=== PATIENT | male | born 1995 | race Caucasian/White ===

== ENCOUNTER 2025-02-22 10:47 | Outpatient (AMB) | payer BC, SELFPAY ==
--- NOTE | 2025-02-22 10:59 | A.OFFPC_ITS ---
Vital Signs 02/22/25 11:05 Height 5 ft 10.87 in Weight 183 lb BMI 25.6 BP 134/88 Blood Pressure Location Lt brachial Position Sitting Respiration 16 Pulse 97 Pulse Source Pulse Oximeter Temp 98.3 F Temp Source Oral Pulse Oximetry (%) 98 Oxygen Delivery Method Room Air Intake Visit Reasons: Ankle Check-Up & Anxiety Manager Hematology Required: No Accompanied by: Self / Same As Patient Allergies No Known Allergies Allergy (Verified 02/22/25 11:00) Tobacco use date assessed: 02/22/25 Dental Screening Dental Screen Date: 02/22/25 Did you have a dental visit in the last 12 months?: Yes Did you have a dental problem in the last 6 months where you did not have access to dental care?: No Was dental information given to patient?: Patient has dentist HPI HPI Comments History of Present Illness Details Consent Patient was informed and verbally consented to the use of an ambient scribe for clinic note documentation during this visit. History of Present Illness The patient is a 29-year-old male presenting with management of ADHD, anxiety, and depression, as well as follow-up for a recent fall injury. Attention Deficit Hyperactivity Disorder (ADHD): The patient was diagnosed with ADHD in [address] Simeon at [facility]. He has not been on medication since February 2022, previously taking Adderall XR 100 mg. 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 Anxiety: The patient describes himself as quite anxious and has a history of taking sertraline and Wellbutrin for anxiety and depression. He reports that sertraline was effective but led to a stable mood without highs and lows. Bipolar II Disorder: The patient was suggested to have hypomanic bipolar disorder by his psychiatrist, which aligns with Bipolar II Disorder. He reports that sertraline stabilized his mood but resulted in a consistently depressed state. Depression: The patient has a history of depression and has been treated with sertraline and Wellbutrin. He reports that sertraline was effective in managing his symptoms. Left knee ACL tear: The patient underwent ACL replacement surgery on his left knee in October 2019 after tearing it in September 2019. He has since returned to activities such as ice skating. Fall with subsequent injury: The patient fell down a flight of stairs five weeks ago, resulting in an injury that required wearing a boot. He reports no fractures or separations and is expected to wear the boot for another three weeks. Surgical History: - ACL replacement surgery on left knee i n October 2019 Medications: - Adderall XR 100 mg (previously taken f or ADHD) - Sertraline (previously taken for anxie ty and depression) - Wellbutrin (previously taken for anxie ty and depression) Social History: - Employment: Works as a plastics scientist, find s it challenging without ADHD medication. - Substance use: Reports smoking marijua na and occasional use of psychedelics. - Exercise: Engages in activities such a s ice skating. Review of Systems - Musculoskeletal: Reports tightness in finger upon waking, requires stretching. - Neurological: Denies syncope but repor ts near-fainting episodes. - Respiratory: Denies snoring or waking up gasping for air. - Gastrointestinal: Denies constipation. 10-point ROS reviewed and negative excep t as noted in HPI Past Medical History - Attention Deficit Hyperactivity Disord er (ADHD) diagnosed in 2021 - Anxiety and Depression, previously bandar ated with sertraline and Wellbutrin - Bipolar II Disorder, suggested by psyc hiatrist - Left knee ACL tear, surgically repaire d in October 2019 Health Maintenance - Vaccinations: Up to date with Tdap, fl u shot, and COVID booster scheduled. Physical Exam General: Well-appearing, in no acute distress. Vital signs: Within normal limits. HEENT: Normocephalic, atraumatic. PERRLA, EOMI. Conjunctiva clear, sclera anicteric. Oropharynx clear, mucous membranes moist. TMs intact bilaterally. Neck: Supple, no lymphadenopathy, no thyromegaly, no JVD or carotid bruits. Cardiovascular: RRR, normal S1/S2, no murmurs, rubs, or gallops. Peripheral pulses 2+ and symmetric. No edema. Respiratory: Lungs clear to auscultation bilaterally, no wheezes, rales, or rhonchi. Normal effort. Abdomen: Soft, non-tender, non-distended. Normoactive bowel sounds. No hepatosplenomegaly, no masses. MSK: Full range of motion, no joint swelling or deformity. Normal gait. Patient is currently in a boot for left leg due to a fall down a flight of stairs five weeks ago. Left knee ACL replacement in October 2019. Skin: Warm, dry, intact. No rashes, lesions, or pallor. Recent minor head injury from a falling object, bleeding stopped. Neuro: Alert and oriented x3. Cranial nerves II-XII intact. Strength 5/5 throughout. Sensation intact. Reflexes 2+ symmetric. Normal coordination and gait. Reports tightness in finger upon waking, requiring stretching. Psych: Appropriate mood and affect. Normal judgment and insight. History of ADHD, anxiety, and bipolar depression type II. Previously on sertraline and Adderall XR 100 mg. Reports increased anxiety and self-medicating with cannabis. Plan 1. Attention Deficit Hyperactivity Disor tanner (Adhd) - Referral to [facility] for evaluation and potential restart of ADHD medication. 2. Anxiety - Referral to [facility] for evaluation and management of anxiety. 3. Bipolar Ii Disorder - Referral to [facility] for evaluation and management of bipolar disorder. 4. Depression - Referral to [facility] for evaluation and management of depression. 5. Left Knee Acl Tear - Follow-up with accounting software specialist f or ongoing management and rehabilitation. 6. Fall With Subsequent Injury - Continue wearing the boot for three mo re weeks and follow up with accounting software specialist. Discussion Notes I discussed with the patient the importance of addressing his ADHD, anxiety, and depression through appropriate referrals to behavioral health specialists. We also talked about the need for follow-up with orthopedics for his recent fall injury. I emphasized the significance of adhering to the recommended treatment plans and the potential benefits of restarting ADHD medication. Additionally, I ordered a complete blood count to monitor his health status. Patient Instructions - Follow up with behavioral [facility] for ADHD, anxiety, and depression management. - Continue wearing the boot for three mo re weeks and follow up with orthopedics. - Schedule a blood draw for a complete b lood count before the next visit. Medical Decision Making The patient's primary concerns include ADHD, anxiety, and depression, which require comprehensive management through behavioral health referrals. The decision to refer to specialists is based on the need for specialized care and potential medication management. The recent fall injury necessitates orthopedic follow-up to ensure proper healing and rehabilitation. The complete blood count is ordered to monitor overall health and address any underlying issues. The goal is to provide a holistic approach to the patient's mental and physical health needs. Total time spent caring for the patient today was 30 minutes. This includes time spent before the visit reviewing the chart, time spent documenting, and time spent reviewing laboratory results, diagnostic imaging, medications, performing a medically necessary evaluation, counseling on diagnoses, care coordination, ordering appropriate tests, ordering appropriate medications. [facility] Medical History (Updated 02/22/25 @ 11:27 by Tyree Webster MD) Bipolar depression Anxiety and depression ADHD Family History (Updated 02/22/25 @ 11:01 by Lucio Pitts MA) Father No problems noted. Mother No problems noted. Social History Housing: Apartment Patient Tobacco Use Status: Current someday Tobacco user service: No Current occupational status: unemployed Cognitive needs: Yes Hearing needs: No Vision needs: No Questionnaire PHQ-9 Over the last 2 weeks, how often have you been bothered by any of the following problems? 1. Little interest or pleasure in doing things: more than half the days 2. Feeling down, depressed, or hopeless: several days 3. Trouble falling or staying asleep, or sleeping too much: several days 4. Feeling tired or having little energy: several days 5. Poor appetite or overeating: several days 6. Feeling bad about yourself - or that you are a failure or have let yourself or your family down: several days 7. Trouble concentrating on things, such as reading the newspaper or watching television: several days 8. Moving or speaking so slowly that other people could have noticed. Or the opposite - being so fidgety or restless that you have been moving around a lot more than usual: not at all 9. Thoughts that you would be better off or of hurting yourself in some way: not at all Total score: 8 Depression Screening Interpretation: Negative Depression Screening Done: Yes Source: Developed by Drs. Satish Cueva, Cindy Nicolas, Mau Lee and colleagues, with an educational omi from [employer]. Thrive Questionnaire Date Thrive assessed: 02/18/25 I am a: Patient What is your living situation today?: I have a steady place to live Within the past 12 months, did the food you bought not last and you didn't have the money to get more?: Never true Within the past 12 months, did you worry whether your food would run out before you got money to buy more?: Never true Do you have trouble paying for medicines?: No Do you have trouble getting transportation to medical appointments?: No Do you have trouble paying your heating and electricity bill?: No Do you have trouble taking care of your child, family member or friend?: No Do you have trouble with day-to-day activities such as bathing, preparing meals, shopping, managing finances, etc.?: No Are you currently unemployed and looking for a job?: Yes Are you interested in more education?: Yes Please select the resources that you would like help with: Job search/training Currently or been in a relationship where the following occur: No concerns reported THRIVE Score: 0 AUDIT C Alcohol Use Questionnaire (AUDIT-C) 1. How often do you have a drink containing alcohol?: 2-4 times a month 2. How many drinks containing alcohol do you have on a typical day when you are drinking?: 3 or 4 3. How often do you have six or more drinks on one occasion?: Less than monthly Total Score: 4 ANGELINE-7 AMB Questionnaire ANGELINE-7 Feeling nervous, anxious, or on edge: 3 = Nearly every day Not being able to stop or control worryin = Several days Worrying too much about different things: 0 = Not at all Trouble relaxin = Several days Being so restless that it is hard to sit still: 1 = Several days Becoming easily annoyed or irritable: 0 = Not at all Feeling afraid as if something awful might happen: 0 = Not at all Total ANGELINE-7 score (0-4 normal; 5-9 mild; 10-14 moderate; 15-21 severe): 6 Source: Developed by Drs. Satish Cueva, Cindy Nicolas, Mau Lee and colleagues, with an educational omi from [employer]. Physical exam (Primary Care) Vital Signs: Last Vital Signs Temp 98.3 F 02/22/25 11:05 Pulse 97 02/22/25 11:05 Resp 16 02/22/25 11:05 BP 134/88 02/22/25 11:05 Pulse Ox 98 02/22/25 11:05 Oxygen Delivery Method Room Air 02/22/25 11:05 BMI result Body Mass Index 25.6 Tobacco/Smoking Status: Tobacco use Status Tobacco use date assessed 02/22/25 02/22/25 11:04 Patient Tobacco Use Status Current someday Tobacco 02/22/25 11:09 PHQ-9: PHQ-9 Score PHQ-9: Total score 8 02/22/25 11:00 Depression Screening Interpretation: Negative Thrive Assessment: Date of Thrive Assessment Date Thrive assessed 02/18/25 02/22/25 11:00 Currently or been in a relationship where the following occur: No concerns reported Coding Level of Care Code New Pt Level 4 (71798) Diagnoses ADHD F90.9 Anxiety and depression F41.9; F32.A Bipolar depression F31.9 History of repair of anterior cruciate ligament of left knee Z98.890 Fall W19.XXXA Assessment & Plan Assessment & Plan (1) ADHD: Code(s): F90.9 - Attention-deficit hyperactivity disorder, unspecified type Category: Medical (2) Anxiety and depression: Code(s): F41.9 - Anxiety disorder, unspecified; F32.A - Depression, unspecified Category: Medical (3) Bipolar depression: Code(s): F31.9 - Bipolar disorder, unspecified Category: Medical (4) History of repair of anterior cruciate ligament of left knee: Code(s): Z98.890 - Other specified postprocedural states (5) Fall: Code(s): W19.XXXA - Unspecified fall, initial encounter Plan Orders: Orders Comprehensive Met. Panel Today Z13.9 - Encounter for screening, unspecified Hepatitis B Surface Antigen Today Z13.9 - Encounter for screening, unspecified HIV Ab/Ag Today Z13.9 - Encounter for screening, unspecified Vitamin D 1,25 dihydroxy Today Z13.9 - Encounter for screening, unspecified Complete Blood Count Auto Diff Today Z13.9 - Encounter for screening, unspecified Hemoglobin A1c Today Z13.9 - Encounter for screening, unspecified Hepatitis B Surface Antibody Today Z13.9 - Encounter for screening, unspecified Hepatitis C Antibody Today Z13.9 - Encounter for screening, unspecified Lipid Panel Today Z13.9 - Encounter for screening, unspecified TSH reflex Free T4 Today Z13.9 - Encounter for screening, unspecified UA CC w/rflx Micro + Cult Today Z13.9 - Encounter for screening, unspecified Vitamin B12 and Folate Today Z13.9 - Encounter for screening, unspecified Magnesium Today Z13.9 - Encounter for screening, unspecified Referrals Psychiatry Outpatient Consultation Service F31.9 - Bipolar disorder, unspecified, F32.A - Depression, unspecified, F41.9 - Anxiety disorder, unspecified, F90.9 - Attention-deficit hyperactivity disorder, unspecified type Nurse Navigator Referral F31.9 - Bipolar disorder, unspecified, F32.A - Depression, unspecified, F41.9 - Anxiety disorder, unspecified, F90.9 - Attention-deficit hyperactivity disorder, unspecified type Behavioral Health Referral F31.9 - Bipolar disorder, unspecified, F32.A - Depression, unspecified, F41.9 - Anxiety disorder, unspecified, F90.9 - Attention-deficit hyperactivity disorder, unspecified type
[2025-02-22 11:05] VITALS: BP 134/88; PULSE 97; RESP 16; TEMP 36.8; O2SAT 98; BMI 25.6
== END 2025-02-22 11:38 | disposition home or self-care (01) ==
PROVIDERS: PCP Student in an Organized Health Care Education/Training Program; Visit Provider Student in an Organized Health Care Education/Training Program
DX: F90.9 Attention-deficit hyperactivity disorder, unspecified type (principal); F41.9 Anxiety disorder, unspecified; F32.A Depression, unspecified; F31.9 Bipolar disorder, unspecified; Z98.890 Other specified postprocedural states; W19.XXXA Unspecified fall, initial encounter

== ENCOUNTER 2025-03-17 15:35 | Outpatient (AMB) | payer BC, SELFPAY ==
--- NOTE | 2025-03-17 15:41 | A.OFFPC_ITS ---
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 Trigger finger of left ring finger: The patient reports an 8-week history of pain, clicking, and locking in his left ring finger, which is worse in the mornings. He notes that the finger will get stuck in a flexed position, requiring intentional effort to extend it. He wonders if the issue is related to his recent use of crutches, which he is no longer using. Social History: - Functional Status: The patient recentl y used crutches and was unable to drive until today. - Current mobility is full weight-bearin g. Past Medical History - Recent crutch use for an unspecified c ondition. Health Maintenance - The patient has pending blood work to be completed. [facility] Medical History (Updated 03/17/25 @ 20:34 by Tyree Webster MD) Trigger finger, left ring finger Bipolar depression Anxiety and depression ADHD Family History Father No problems noted. Mother No problems noted. Social History (Updated 03/17/25 @ 15:43 by Josue Mcgowan CMA) Housing: Apartment Patient Tobacco Use Status: Current someday Tobacco user Substance Use Type: Marijuana service: No Current occupational status: unemployed Cognitive needs: Yes Hearing needs: No Vision needs: No Questionnaire Thrive Questionnaire Date Thrive assessed: 02/18/25 I am a: Patient What is your living situation today?: I have a steady place to live Within the past 12 months, did the food you bought not last and you didn't have the money to get more?: Never true Within the past 12 months, did you worry whether your food would run out before you got money to buy more?: Never true Do you have trouble paying for medicines?: No Do you have trouble getting transportation to medical appointments?: No Do you have trouble paying your heating and electricity bill?: No Do you have trouble taking care of your child, family member or friend?: No Do you have trouble with day-to-day activities such as bathing, preparing meals, shopping, managing finances, etc.?: No Are you currently unemployed and looking for a job?: Yes Are you interested in more education?: Yes Please select the resources that you would like help with: Job search/training Currently or been in a relationship where the following occur: No concerns reported THRIVE Score: 0 Review of Systems Narrative Review of Systems - Musculoskeletal: Reports pain, clicking, and locking of the left ring finger for the past 8 weeks, which is worse in the morning. 10-point ROS reviewed and negative except as noted in HPI Physical exam (Primary Care) Vital Signs: Last Vital Signs Temp 98.3 F 03/17/25 15:43 Pulse 91 03/17/25 15:43 Resp 17 03/17/25 15:43 BP 129/66 03/17/25 15:43 Pulse Ox 96 03/17/25 15:43 Oxygen Delivery Method Room Air 03/17/25 15:43 BMI result Body Mass Index 25.1 Tobacco/Smoking Status: Tobacco use Status Tobacco use date assessed 02/22/25 03/17/25 15:45 Patient Tobacco Use Status Current someday Tobacco 03/17/25 15:45 Thrive Assessment: Date of Thrive Assessment Date Thrive assessed 02/18/25 03/17/25 15:45 Currently or been in a relationship where the following occur: No concerns reported Narrative Physical Exam General: Well-appearing, in no acute distress. Vital signs: Within normal limits. HEENT: Normocephalic, atraumatic. PERRLA, EOMI. Conjunctiva clear, sclera anicteric. Oropharynx clear, mucous membranes moist. TMs intact bilaterally. Neck: Supple, no lymphadenopathy, no thyromegaly, no JVD or carotid bruits. Cardiovascular: RRR, normal S1/S2, no murmurs, rubs, or gallops. Peripheral pulses 2+ and symmetric. No edema. Respiratory: Lungs clear to auscultation bilaterally, no wheezes, rales, or rhonchi. Normal effort. Abdomen: Soft, non-tender, non-distended. Normoactive bowel sounds. No hepatosplenomegaly, no masses. MSK: Full range of motion, no joint swelling or deformity. Normal gait. Notable for left hand trigger finger, specifically the ring finger, with clicking and locking sensation, worse in the morning. Skin: Warm, dry, intact. No rashes, lesions, or pallor. Neuro: Alert and oriented x3. Cranial nerves II-XII intact. Strength 5/5 throughout. Sensation intact. Reflexes 2+ symmetric. Normal coordination and gait. Psych: Appropriate mood and affect. Normal judgment and insight. Coding Level of Care Code Est Pt Level 3 (59081) Diagnoses Trigger finger, left ring finger M65.342 Assessment & Plan Assessment & Plan (1) Trigger finger, left ring finger: Code(s): M65.342 - Trigger finger, left ring finger Category: Medical Plan Consent Patient was informed and verbally consented to the use of an ambient scribe for clinic note documentation during this visit. Plan 1. Trigger Finger Of Left Ring Finger - A trial of conservative management will be initiated first. - The patient is advised to splint the left ring finger for 2 to 3 weeks. - Ibuprofen can be taken to reduce inflammation. - Follow-up is recommended in 2 to 4 weeks to re-evaluate. - If symptoms do not improve, a corticosteroid injection will be considered. Discussion Notes I have diagnosed the patient with a trigger finger of the left ring finger. I discussed initiating conservative management, which includes splinting the finger for 2-3 weeks and using ibuprofen to reduce inflammation. We will reassess his condition in 2-4 weeks, and if there is no improvement, we will proceed to the next step, which could include a corticosteroid injection. Patient Instructions - You should purchase a finger splint and wear it on your left ring finger for the next 2 to 3 weeks. - You can take ibuprofen as needed to help with inflammation and discomfort. - We will plan to touch base in 2 to 4 weeks to see how your finger is doing. - Please get your blood work done in the next week. Medical Decision Making The patient is a 29-year-old male presenting with an 8-week history of pain, clicking, and locking of the left ring finger, consistent with trigger finger. Symptoms are worse in the morning, and he has to actively extend the digit from a flexed position. Given the symptoms, the initial management will be conservative. The plan is to splint the finger for 2-3 weeks and use ibuprofen to reduce inflammation. If this initial treatment fails to resolve the issue, we will consider a corticosteroid injection at the follow-up visit in 2-4 weeks. Total Time Statement Total time spent caring for the patient today includes pre-visit chart review, documentation, review of laboratory and diagnostic imaging results, medication reconciliation, medically necessary evaluation, counseling on diagnoses, care coordination, ordering appropriate tests and medications, review of tests performed by other providers, reporting test results to the patient, and communication with other healthcare providers.
[2025-03-17 15:43] VITALS: BP 129/66; PULSE 91; RESP 17; TEMP 36.8; O2SAT 96; BMI 25.1
== END 2025-03-17 16:03 | disposition home or self-care (01) ==
LOC: HO.HMCFMS 15:37
PROVIDERS: PCP Student in an Organized Health Care Education/Training Program; Visit Provider Student in an Organized Health Care Education/Training Program
DX: M65.342 Trigger finger, left ring finger (principal)